=== PATIENT | male | born 1950 | race Hispanic/Latino ===

== ENCOUNTER 2019-02-21 09:17 | Emergency (ER) | payer OTHER, SELFPAY ==
[2019-02-21 09:30] VITALS: BP 130/87; PULSE 118; RESP 33; TEMP 36.9; O2SAT 96
--- NOTE | 2019-02-21 09:59 | DI.RAD.S_ITS ---
PROCEDURE: XR CHEST 1V INDICATIONS: SOB TECHNIQUE: One view of the chest was acquired. COMPARISON: None. FINDINGS: Surgical changes and devices: None. Lungs and pleura: Small patchy opacities in the right lung base which may represent atelectasis, aspiration or pneumonia. Trace right-sided pleural effusion. No pleural effusions or pneumothorax. Mediastinum: Mediastinal contours appear normal. Heart size is normal. Bones and chest wall: No suspicious bony lesions. Overlying soft tissues appear unremarkable. IMPRESSION: 1. Patchy right basilar opacities compatible with atelectasis, aspiration or pneumonia. 2. Trace right-sided pleural effusion. Dictated by: Marguerite Hart MD, PhD on 02/21/2019 at 9:23 Approved by: Marguerite Hart MD, PhD on 02/21/2019 at 9:24
[2019-02-21] MEDS: ONDANSETRON 4 MG/2 ML INJ IV (10:03)
--- NOTE | 2019-02-21 10:05 | PC.NURSE ---
Pt arrived POV with reports of RUQ pain x 4 days with increased nausea. denies vomiting and diarrhea. Per notes appears to have had thoracentsis done recently on Wednesday and 2L was removed. Pt tachy 115 NSR. EKG obtained. afebrile. IV placed and labs drawn including BC x 1 and lactate. lab in for 2nd set. CXR obtained. pt appears uncomfortable. Nausea medication given. Dr Squires at bedside
--- NOTE | 2019-02-21 10:12 | ED_ITS ---
HPI - Abdominal Pain General Chief Complaint: Abdominal Pain Stated Complaint: left lower quad pain x5 days Time Seen by Provider: 02/21/19 09:37 Source: patient Mode of arrival: Wheelchair Limitations: no limitations History of Present Illness HPI narrative: Patient is a 69-year-old male. Here for evaluation of right upper quadrant abdominal pain. Patient states the symptoms have been going on for the past couple days. Approximately 2 weeks ago he was seen at an outside emergency department for pleuritic substernal chest pain that was radiating to his right upper quadrant. I was able to review these notes. During that visit it looked like he had a very large left-sided pleural effusion. He did have a thoracentesis with removal of 800 cc. He states that improved his breathing issues. He states that the symptoms today are different from the symptoms that took him to the emergency department at that time. 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 Has not taken anything for symptoms prior to arrival. States that he potentially had some blood in his urine the other day but no dysuria. No changes in bowel habits. Related Data Home Medications Medication Instructions Recorded Confirmed omeprazole 40 mg PO BEDTIME 02/21/19 02/21/19 prednisone See Rx Instructions .ROUTE .COMPLEX 02/21/19 02/21/19 sulfamethoxazole-trimethoprim 1 tab PO BEDTIME 02/21/19 02/21/19 Allergies Allergy/AdvReac Type Severity Reaction Status Date / Time No Known Drug Allergies Allergy Verified 02/21/19 09:46 Review of Systems Constitutional Constitutional: Denies fever(s) Cardiovascular Cardiovascular: Denies chest pain and Denies dyspnea Respiratory Respiratory: Denies dyspnea Gastrointestinal Gastrointestinal: Reports abdominal pain, Reports nausea and Denies vomiting Genitourinary Genitourinary: Reports hematuria, Denies genital lesions, Denies dysuria and Denies flank pain Musculoskeletal Musculoskeletal: Denies myalgias and Denies arthralgias Integumentary/Breasts Skin/Breast: Denies lesions and Denies rash Neurologic Neurologic: Denies behavioral changes Psychiatric Psychiatric: Denies behavioral changes Hematologic/Lymphatic Hematologic/Lymphatic: Denies easy bleeding and Denies easy bruising Patient History Medical History Pleural effusion in other conditions classified elsewhere (Acute) Polyarteritis nodosa (Acute) Social History Smoking Status: Former smoker Social History Smoking Status: Former smoker alcohol intake frequency: 0-2 drinks per day Substance Use Type: does not use Exam Initial Vital Signs Initial Vital Signs: Vital Signs Temperature 98.4 F 02/21/19 09:30 Pulse Rate 118 H 02/21/19 09:30 Respiratory Rate 33 H 02/21/19 09:30 Blood Pressure 130/87 02/21/19 09:30 Pulse Oximetry 96 02/21/19 09:30 Const General: comfortable and well developed Orientation: alert, awake and oriented x3 Resp Effort & Inspection: normal respiratory effort Auscultation: clear to auscultation bilaterally Cardio Rate: tachycardic Rhythm: regular rhythm GI Palpation: soft Back/Spine/Pelvis Back: No CVA tenderness Skin Lesions: no lesions Rashes: no rashes Neuro General: alert, awake and oriented x3 Cognition: normal cognition Speech: speech normal Extrem General: capillary refill normal Psych Appearance: grossly normal and well kempt Course Orders Ordered: ED Orders 02/21/19 09:46 EKG-12 Lead Stat 02/21/19 09:58 Complete Blood Count AUTO DIFF Stat Comprehensive Metabolic Panel Stat Lactate (Lactic Acid) Stat Lipase Stat Partial Thromboplastin Time Stat Prothrombin Time INR Stat 02/21/19 09:59 XR chest 1V Stat 02/21/19 10:11 Blood Culture Stat 02/21/19 10:19 CT abdomen pelvis w con Stat 02/21/19 11:32 US abdomen limited Stat 02/21/19 13:13 Urine Microscopic Stat Discontinued Medications Hydromorphone HCl (Dilaudid) 0.5 mg IV NOW ONE Stop: 02/21/19 14:08 Last Admin: 02/21/19 14:18 Dose: 0.5 mg Documented by: RED Sodium Chloride (Normal Saline 0.9%) 1,000 mls @ 150 mls/hr IV CONT MERCEDES Last Infusion: 02/21/19 14:12 Dose: 0 mls/hr Documented by: Admin: 02/21/19 10:15 Dose: 150 mls/hr Documented by: RED Piperacillin/Tazobactam/Dextrose (Zosyn) 3.375 gm in 50 mls @ 100 mls/hr IV NOW ONE Stop: 02/21/19 14:06 Last Infusion: 02/21/19 14:12 Dose: 0 mls/hr Documented by: Admin: 02/21/19 13:52 Dose: 100 mls/hr Documented by: RED Ondansetron HCl (Zofran) 4 mg IV NOW ONE Stop: 02/21/19 09:49 Last Admin: 02/21/19 10:03 Dose: 4 mg Documented by: RED Vital Signs Vital signs: Vital Signs - 8 hr 02/21/19 12:14 02/21/19 13:30 02/21/19 15:00 Pulse Rate 100 H 93 H 93 H Respiratory Rate 20 31 H 27 H Blood Pressure [Right Arm] 115/69 111/66 106/65 Pulse Oximetry 99 96 MDM - Abdominal Pain Lab Data Attestation: I reviewed the patient's lab results. Result diagrams: 02/21/19 09:58 02/21/19 09:58 Labs: Lab Results 02/21/19 02/21/19 02/21/19 Range/Units 08:50 09:58 09:58 WBC 12.2 H (4.5-11.0) X10^3/uL RBC 5.24 (4.5-5.9) X10^6/uL Hgb 15.0 (13.5-17.5) g/dL Hct 44.3 (41-53) % MCV 84.6 (80-100) fL MCH 28.6 (26-34) PG MCHC 33.8 (30-36) % RDW 16.7 H (11.6-14.8) % Plt Count 89 L (150-400) X10^3/uL Neut % (Auto) Not Reportable Lymph % (Auto) Not Reportable [place] % (Auto) Not Reportable Eos % (Auto) Not Reportable Baso % (Auto) Not Reportable Lymph # (Auto) Not Reportable [place] # (Auto) Not Reportable Baso # (Auto) Not Reportable Total Counted 100 Seg Neutrophils % 37.0 L (38-70) % Band Neutrophils % 2.0 L (3-7) % Lymphocytes % (Manual) 11.0 L (25-45) % Monocytes % (Manual) 50.0 H (2-11) % Neutrophils # (Manual) 4758 (4322-7714) /uL RBC Morphology See below Anisocytosis 1+ H PT 20.6 H (10.1-12.7) SECONDS INR 1.8 H (0.9-1.3) APTT 46 H (26.4-36.2) SECONDS Sodium (137-145) mmol/L Potassium (3.4-5.1) mmol/L Chloride (98-107) mmol/L Carbon Dioxide (22-32) mmol/L BUN (9-20) mg/dL Creatinine (0.66-1.25) mg/dL Estimated GFR (>60) mL/min BUN/Creatinine Ratio (6-22) Glucose (80-110) mg/dL Lactate (0.7-2.1) mmol/L Calcium (8.4-10.2) mg/dL Total Bilirubin (0.2-1.3) mg/dL AST (17-59) IU/L ALT (21-72) IU/L Alkaline Phosphatase (38-126) U/L Total Protein (6.3-8.2) g/dL Albumin (3.5-5.0) g/dL Globulin (1.7-4.1) g/dL Albumin/Globulin Ratio (1.0-2.8) Lipase (23-300) U/L Procalcitonin 1.19 H (<0.5) ng/mL Urine RBC (0-5/HPF) Urine WBC (0-5/HPF) Ur Squamous Epith Cells (0-5/HPF) Urine Bacteria (None) Ur Culture Indicated? 02/21/19 02/21/19 02/21/19 Range/Units 09:58 09:58 12:18 WBC (4.5-11.0) X10^3/uL RBC (4.5-5.9) X10^6/uL Hgb (13.5-17.5) g/dL Hct (41-53) % MCV (80-100) fL MCH (26-34) PG MCHC (30-36) % RDW (11.6-14.8) % Plt Count (150-400) X10^3/uL Neut % (Auto) Lymph % (Auto) [place] % (Auto) Eos % (Auto) Baso % (Auto) Lymph # (Auto) [place] # (Auto) Baso # (Auto) Total Counted Seg Neutrophils % (38-70) % Band Neutrophils % (3-7) % Lymphocytes % (Manual) (25-45) % Monocytes % (Manual) (2-11) % Neutrophils # (Manual) (9348-6845) /uL RBC Morphology Anisocytosis PT (10.1-12.7) SECONDS INR (0.9-1.3) APTT (26.4-36.2) SECONDS Sodium 134 L (137-145) mmol/L Potassium 4.6 (3.4-5.1) mmol/L Chloride 96 L (98-107) mmol/L Carbon Dioxide 23 (22-32) mmol/L BUN 21 H (9-20) mg/dL Creatinine 1.50 H (0.66-1.25) mg/dL Estimated GFR 46.5 L (>60) mL/min BUN/Creatinine Ratio 14.0 (6-22) Glucose 127 H (80-110) mg/dL Lactate 2.4 H 0.9 (0.7-2.1) mmol/L Calcium 9.3 (8.4-10.2) mg/dL Total Bilirubin 2.0 H (0.2-1.3) mg/dL AST 39 (17-59) IU/L ALT 20 L (21-72) IU/L Alkaline Phosphatase 91 (38-126) U/L Total Protein 8.3 H (6.3-8.2) g/dL Albumin 4.2 (3.5-5.0) g/dL Globulin 4.1 (1.7-4.1) g/dL Albumin/Globulin Ratio 1.0 (1.0-2.8) Lipase 151 (23-300) U/L Procalcitonin (<0.5) ng/mL Urine RBC (0-5/HPF) Urine WBC (0-5/HPF) Ur Squamous Epith Cells (0-5/HPF) Urine Bacteria (None) Ur Culture Indicated? 02/21/19 Range/Units 13:13 WBC (4.5-11.0) X10^3/uL RBC (4.5-5.9) X10^6/uL Hgb (13.5-17.5) g/dL Hct (41-53) % MCV (80-100) fL MCH (26-34) PG MCHC (30-36) % RDW (11.6-14.8) % Plt Count (150-400) X10^3/uL Neut % (Auto) Lymph % (Auto) [place] % (Auto) Eos % (Auto) Baso % (Auto) Lymph # (Auto) [place] # (Auto) Baso # (Auto) Total Counted Seg Neutrophils % (38-70) % Band Neutrophils % (3-7) % Lymphocytes % (Manual) (25-45) % Monocytes % (Manual) (2-11) % Neutrophils # (Manual) (9396-1164) /uL RBC Morphology Anisocytosis PT (10.1-12.7) SECONDS INR (0.9-1.3) APTT (26.4-36.2) SECONDS Sodium (137-145) mmol/L Potassium (3.4-5.1) mmol/L Chloride (98-107) mmol/L Carbon Dioxide (22-32) mmol/L BUN (9-20) mg/dL Creatinine (0.66-1.25) mg/dL Estimated GFR (>60) mL/min BUN/Creatinine Ratio (6-22) Glucose (80-110) mg/dL Lactate (0.7-2.1) mmol/L Calcium (8.4-10.2) mg/dL Total Bilirubin (0.2-1.3) mg/dL AST (17-59) IU/L ALT (21-72) IU/L Alkaline Phosphatase (38-126) U/L Total Protein (6.3-8.2) g/dL Albumin (3.5-5.0) g/dL Globulin (1.7-4.1) g/dL Albumin/Globulin Ratio (1.0-2.8) Lipase (23-300) U/L Procalcitonin (<0.5) ng/mL Urine RBC 0-1/hpf (0-5/HPF) Urine WBC 0-1/hpf (0-5/HPF) Ur Squamous Epith Cells 0-1 /hpf (0-5/HPF) Urine Bacteria None seen (None) Ur Culture Indicated? Cult not indicated Point of care testing: Urine Dip Bedside Urine Glucose Negative Bedside Urine Bilirubin - Negative Bedside Urine Ketone - Negative Urine Specific [place] 1.005 Bedside Urine Occult Blood - Negative Bedside Urine pH 6.0 Bedside Urine Protein + 30 Bedside Urine Urobilinogen +/- 1mg Bedside Urine Nitrite - Negative Bedside Urine Leukocytes +/- 15 Esterase Imaging Data Chest x-ray: Radiologist's impression: [address] [address] XRay Report Signed Patient: Nicholas Cedillo CMR#: [id number] : [id number]:[id number] Age/Sex: 69 / MDate of Service: 02/21/19 Loc: ED Accession Number: [id number] Procedure: XR chest 1V Ordering Provider: Bryan Squires D.O. PROCEDURE: XR CHEST 1V INDICATIONS: SOB TECHNIQUE: One view of the chest was acquired. COMPARISON: None. FINDINGS: Surgical changes and devices: None. Lungs and pleura: Small patchy opacities in the right lung base which may represent atelectasis, aspiration or pneumonia. Trace right-sided pleural effusion. No pleural effusions or pneumothorax. Mediastinum: Mediastinal contours appear normal. Heart size is normal. Bones and chest wall: No suspicious bony lesions. Overlying soft tissues appear unremarkable. IMPRESSION: 1. Patchy right basilar opacities compatible with atelectasis, aspiration or pneumonia. 2. Trace right-sided pleural effusion. Dictated by: Marguerite Hart MD, PhD on 02/21/2019 at 9:23 Approved by: Marguerite Hart MD, PhD on 02/21/2019 at 9:24 CT scan - abdomen: Radiologist's impression: [address] [address] [address] Scan Report Signed Patient: Nicholas Cedillo CMR#: [id number] : cct:[id number] Age/Sex: 69 / MDate of Service: 02/21/19 Loc: ED Accession Number: [id number] Procedure: CT abdomen pelvis w con Ordering Provider: Bryan Squires D.O. PROCEDURE: CT ABDOMEN PELVIS W CON INDICATIONS: Generalized abdominal pain TECHNIQUE: After the administration of intravenous contrast, 5 mm thick sections acquired from the diaphragm to the symphysis. 5 mm coronal and sagittal reformats were acquired. For radiation dose reduction, the following was used: automated exposure control, adjustment of mA and/or kV according to patient size. COMPARISON: [facility], CT, CHEST/ABD/PEL WITH CONTRAST, 01/09/2017, 15:32. FINDINGS: Image quality: Excellent. ABDOMEN: Lung bases: Lung bases are abnormal with a mild pneumonia pattern at the posterior right lower lobe and a minimal area of alveolar infiltration in the posterior left lower lobe. Heart size is normal. Solid organs: Liver is normal in size and demonstrates mildly heterogeneous enhancement with a pattern of generalized mild fatty infiltration and relative sparing of fatty infiltration adjacent to the gallbladder fossa. This may indicate hyperemia in this clinical circumstance.. Gallbladder appears wall thickened and inflamed, measuring up to 9 mm in wall thickness near the fundus and there are several faintly visualized calcifications layering dependently within the gallbladder lumen. Biliary system is non dilated. Pancreas enhances normally. Spleen is again seen to be enlarged in size and normal in enhancement. Splenomegaly has mildly worsened, now measuring up to 19 cm craniocaudad. No adrenal nodules. Kidneys demonstrate normal size and enhancement, without hydronephrosis but there is mild distortion of the medial border of the left kidney superiorly, and a ovoid fluid collection with perceptible rim at its posterior border measuring up to 4.4 x 6.9 cm. The internal contents in that area is water in de nsity. This patient has a prior history of CT scanning from 2017 showing suspected masses and hemorrhage at the kidneys.. Peritoneum and bowel: Bowel loops demonstrate normal wall thickness and caliber. No free fluid or air. Nodes and vessels: No retroperitoneal or mesenteric adenopathy by size criteria. Aorta and inferior vena cava are normal in size. Miscellaneous: No ventral hernias. PELVIS: Genitourinary: Bladder wall thickness is normal. Miscellaneous: No inguinal hernias or adenopathy. Bones: No suspicious bony lesions. No vertebral body compression fractures. IMPRESSION: 1. Acute cholecystitis as the likely cause for the abnormal gallbladder wall thickening and prominent alona-cholecystic edema in the mesenteric fat. There is a small amount of adjacent free fluid and also small faintly visualized calcifications within the posterior gallbladder lumen. A definite calculus within the common duct is not seen. 2. Splenomegaly which has mildly worsened, findings discussed with the emergency room physician caring for the patient. The spleen now measures up to 19 cm craniocaudad. 3. Prior CT scanning has shown what appeared to be masses and hemorrhage involving the kidneys and a set of surgical clips are seen at the medial border of the upper left kidney adjacent to an area of a ovoid fluid collection containing water density material not previously present. This may represent a contained focus of urine extravasation/postoperative hematoma or seroma. The surgical intervention appears to have been likely long ago. 4. Fatty infiltration throughout the liver, hyperemia is noted along the gallbladder fossa as indicated by increased radiodensity within the liver parenchyma in that area. Dictated by: Leo Elizalde M.D. on 02/21/2019 at 11:20 Approved by: Leo Elizalde M.D. on 02/21/2019 at 11:31 US - abdomen: Radiologist's impression: Nicholas Cedillo 69 M 1950 [place] [address] Ultrasound Report Signed Patient: Nicholas Cedillo CMR#: [id number] : [id number]:[id number] Age/Sex: 69 / MDate of Service: 02/21/19 Loc: ED Accession Number: [id number] Procedure: US abdomen limited Ordering Provider: Bryan Squires D.O. PROCEDURE: US ABDOMEN LIMITED INDICATIONS: RUQ ULTRASOUND EVAL FOR GB PATHOLOGY TECHNIQUE: Real-time focused scanning was performed of the abdomen, with image documentation. COMPARISON: [facility], CT, CT ABDOMEN PELVIS W CON, 02/21/2019, 10:51. FINDINGS: Mild perihepatic free fluid, sludge is seen within the gallbladder lumen. Gallbladder wall is abnormally thickened at 5.1 mm. There is a small amount of free pericholecystic fluid around the gallbladder margin and tenderness during sonographic palpation. IMPRESSION: Free fluid in a small quantity is present adjacent to the liver and gallbladder. Gallbladder wall thickening, acute cholecystitis is presumed. Focal tenderness is prominent in the area of the gallbladder fossa. Dictated by: Leo Elizalde M.D. on 02/21/2019 at 12:59 Approved by: Leo Elizalde M.D. on 02/21/2019 at 13:01 ECG Data Attestation: I personally reviewed and interpreted this ECG as follows: Prior ECG tracings: not available for review Interpretation: Sinus tachycardia Ventricular rate of 117 Normal axis Normal QRS Normal QTC No ST T wave changes MDM Narrative Medical decision making narrative: Patient's chest x-ray today shows no signs of pleural effusion. He does state that his abdominal pain is different today than when he was seen for during his last visit. His physical exam was not consistent with pyelonephritis or urinary tract infection. There was no kidney stones seen on his CT scan. There was concern however for potential cholecysti tis. Right upper quadrant ultrasound was obtained which confirmed this diagnosis. Patient's LFTs relatively unremarkable. Lipase unremarkable. Patient's daughter was at bedside who asked that they be transferred to [facility] system due to proximity to other family members. She was also c oncerned about possibly our hospital here not being able to take care of his chronic immunologic issues. Per her request I did contact [facility] who did have bed availability. Discussed the case with General surgery who accepts the patient in transport. The transport is per the patient family request. He is stable for transfer. Discharge Plan Departure Patient Disposition: [facility] Clinical Impression: Acute cholecystitis, VARGHESE (polyarteritis nodosa) Discharge Date/Time: 02/21/19 15:53 Prescriptions: No Action prednisone 10 mg tablet See Rx Instructions .ROUTE .COMPLEX RF: 0 sulfamethoxazole-trimethoprim 800-160 mg tablet 1 tab PO BEDTIME RF: 0 omeprazole 40 MG capsule,delayed release(DR/EC) 40 mg PO BEDTIME RF: 0
--- NOTE | 2019-02-21 10:12 | PC.NURSE ---
pt denies SOB or CP. 98% RA. Abd SNT. awaiting orders for fluids and abd CT
[2019-02-21 10:13] LABS: Hematocrit 44.3 % (41-53); Mean Corpuscular HGB Conc 33.8 % (30-36); Mean Corpuscular Hemoglobin 28.6 PG (26-34); Mean Corpuscular Volume 84.6 fL (80-100); Red Blood Cell Count 5.24 X10^6/uL (4.5-5.9); Red Cell Distribution Width 16.7 % (11.6-14.8); White Blood Cell Count 12.2 X10^3/uL (4.5-11.0)
[2019-02-21 10:14] LABS: Add Manual Diff / Slide Review YES
[2019-02-21] MEDS: SODIUM CHLORIDE 0.9% 1,000 ML 150 ML IV (10:15)
[2019-02-21 10:17] VITALS: BP 121/68; PULSE 113; RESP 23; O2SAT 97
--- NOTE | 2019-02-21 10:19 | DI.CT.S_ITS ---
PROCEDURE: CT ABDOMEN PELVIS W CON INDICATIONS: Generalized abdominal pain TECHNIQUE: After the administration of intravenous contrast, 5 mm thick sections acquired from the diaphragm to the symphysis. 5 mm coronal and sagittal reformats were acquired. For radiation dose reduction, the following was used: automated exposure control, adjustment of mA and/or kV according to patient size. COMPARISON: [facility], CT, CHEST/ABD/PEL WITH CONTRAST, 01/09/2017, 15:32. FINDINGS: Image quality: Excellent. ABDOMEN: Lung bases: Lung bases are abnormal with a mild pneumonia pattern at the posterior right lower lobe and a minimal area of alveolar infiltration in the posterior left lower lobe. Heart size is normal. Solid organs: Liver is normal in size and demonstrates mildly heterogeneous enhancement with a pattern of generalized mild fatty infiltration and relative sparing of fatty infiltration adjacent to the gallbladder fossa. This may indicate hyperemia in this clinical circumstance.. Gallbladder appears wall thickened and inflamed, measuring up to 9 mm in wall thickness near the fundus and there are several faintly visualized calcifications layering dependently within the gallbladder lumen. Biliary system is non dilated. Pancreas enhances normally. Spleen is again seen to be enlarged in size and normal in enhancement. Splenomegaly has mildly worsened, now measuring up to 19 cm craniocaudad. No adrenal nodules. Kidneys demonstrate normal size and enhancement, without hydronephrosis but there is mild distortion of the medial border of the left kidney superiorly, and a ovoid fluid collection with perceptible rim at its posterior border measuring up to 4.4 x 6.9 cm. The internal contents in that area is water in density. This patient has a prior history of CT scanning from 2017 showing suspected masses and hemorrhage at the kidneys.. Peritoneum and bowel: Bowel loops demonstrate normal wall thickness and caliber. No free fluid or air. Nodes and vessels: No retroperitoneal or mesenteric adenopathy by size criteria. Aorta and inferior vena cava are normal in size. Miscellaneous: No ventral hernias. PELVIS: Genitourinary: Bladder wall thickness is normal. Miscellaneous: No inguinal hernias or adenopathy. Bones: No suspicious bony lesions. No vertebral body compression fractures. IMPRESSION: 1. Acute cholecystitis as the likely cause for the abnormal gallbladder wall thickening and prominent alona-cholecystic edema in the mesenteric fat. There is a small amount of adjacent free fluid and also small faintly visualized calcifications within the posterior gallbladder lumen. A definite calculus within the common duct is not seen. 2. Splenomegaly which has mildly worsened, findings discussed with the emergency room physician caring for the patient. The spleen now measures up to 19 cm craniocaudad. 3. Prior CT scanning has shown what appeared to be masses and hemorrhage involving the kidneys and a set of surgical clips are seen at the medial border of the upper left kidney adjacent to an area of a ovoid fluid collection containing water density material not previously present. This may represent a contained focus of urine extravasation/postoperative hematoma or seroma. The surgical intervention appears to have been likely long ago. 4. Fatty infiltration throughout the liver, hyperemia is noted along the gallbladder fossa as indicated by increased radiodensity within the liver parenchyma in that area. Dictated by: Leo Elizalde M.D. on 02/21/2019 at 11:20 Approved by: Leo Elizalde M.D. on 02/21/2019 at 11:31
[2019-02-21 10:20] LABS: INR 1.8 (0.9-1.3); Prothrombin Time 20.6 SECONDS (10.1-12.7)
[2019-02-21 10:23] LABS: PTT Partial Thromboplastin Tim 46 SECONDS (26.4-36.2)
[2019-02-21 10:27] LABS: Alanine Aminotransferase 20 IU/L (21-72); Albumin 4.2 g/dL (3.5-5.0); Alkaline Phosphatase 91 U/L (38-126); Aspartate Aminotransferase 39 IU/L (17-59); Blood Urea Nitrogen 21 mg/dL (9-20); Calcium 9.3 mg/dL (8.4-10.2); Carbon Dioxide 23 mmol/L (22-32); Chloride 96 mmol/L (98-107); Estimated Glomerular Filt Rate 46.5 mL/min (>60); Globulin 4.1 g/dL (1.7-4.1); Glucose 127 mg/dL (80-110); HEMOLYSIS < 15 (0-50); Lipase 151 U/L (23-300); Potassium 4.6 mmol/L (3.4-5.1); Sodium 134 mmol/L (137-145); Total Protein 8.3 g/dL (6.3-8.2)
[2019-02-21 10:28] LABS: Lactate (Lactic Acid) 2.4 mmol/L (0.7-2.1)
[2019-02-21 10:36] LABS: Neutrophils Absolute Manual 4758 /uL (3000-5900); Total Cells Counted 100
[2019-02-21 10:37] LABS: Anisocytosis 1+
[2019-02-21 10:46] LABS: Platelet Count 89 X10^3/uL (150-400)
[2019-02-21 10:54] LABS: Procalcitonin 1.19 ng/mL (<0.5)
--- NOTE | 2019-02-21 11:32 | DI.US.S_ITS ---
PROCEDURE: US ABDOMEN LIMITED INDICATIONS: RUQ ULTRASOUND EVAL FOR GB PATHOLOGY TECHNIQUE: Real-time focused scanning was performed of the abdomen, with image documentation. COMPARISON: [facility], CT, CT ABDOMEN PELVIS W CON, 02/21/2019, 10:51. FINDINGS: Mild perihepatic free fluid, sludge is seen within the gallbladder lumen. Gallbladder wall is abnormally thickened at 5.1 mm. There is a small amount of free pericholecystic fluid around the gallbladder margin and tenderness during sonographic palpation. IMPRESSION: Free fluid in a small quantity is present adjacent to the liver and gallbladder. Gallbladder wall thickening, acute cholecystitis is presumed. Focal tenderness is prominent in the area of the gallbladder fossa. Dictated by: Leo Elizalde M.D. on 02/21/2019 at 12:59 Approved by: Leo Elizalde M.D. on 02/21/2019 at 13:01
[2019-02-21 12:04] LABS: Reflexed Lactate in 2 Hours Y
--- NOTE | 2019-02-21 12:10 | PC.NURSE ---
US obtained. pt resting appears comfortable. aware of need of urine. urinal given. IVF continues to infuse. NAD.
[2019-02-21 12:14] VITALS: BP 115/69; PULSE 100; RESP 20; O2SAT 99
[2019-02-21 12:49] LABS: Lactate 2HR (Lactic Acid Rflx) 0.9 mmol/L (0.7-2.1)
[2019-02-21 13:14] LABS: Bacteria Urine None Seen
[2019-02-21 13:28] LABS: Culture Indicated Urine Cult Not Indicated; RBC Urine 0-1/HPF (0-5/HPF); Squamous Epithelial Cell Urine 0-1 /HPF (0-5/HPF); WBC Urine 0-1/HPF (0-5/HPF)
[2019-02-21 13:30] VITALS: BP 111/66; PULSE 93; RESP 31
--- NOTE | 2019-02-21 13:51 | PC.NURSE ---
Pt resting in bed. at bedside. ABX infusing. noted that both sets of cultures drawn prior to administration. Plan to transfer to [facility]/surgical consult for gallbladder.
[2019-02-21] MEDS: PIPERACILLIN-TAZO 3.375 GM/50 ML FROZ.PIGGY IV (13:52)
[2019-02-21] MEDS: HYDROMORPHONE 0.5 MG INJ IV (14:18)
[2019-02-21 15:00] VITALS: BP 106/65; PULSE 93; RESP 27; O2SAT 96
--- NOTE | 2019-02-21 15:21 | PC.NURSE ---
Pt OOb to BR with steady gait. tolerated well. report attempted to [place] RN. Not available and awaiting a call back
--- NOTE | 2019-02-21 15:53 | PC.NURSE ---
[facility] in ED to transfer pt to [place], Report given to [facility] EMT.
== END 2019-02-21 15:53 | disposition short-term general hospital (02) ==
PROVIDERS: Emergency Provider Emergency Medicine
DX: K81.0 Acute cholecystitis (principal); M30.0 Polyarteritis nodosa
CPT/HCPCS: 36415; 71045; 74177; 76705; 80053; 81003; 81015; 83605; 83690; 84145; 85025; 85610; 85730; 87040; 93005; 96361; 96365; 96375; 99283; 99285; J1170; J2405; J2543; Q9967

== ENCOUNTER 2019-08-04 17:01 | Emergency (ER) | payer OTHER, SELFPAY ==
[2019-08-04 17:10] VITALS: BP 136/86; PULSE 108; RESP 18; TEMP 36.3; O2SAT 100; BMI 229.7
[2019-08-04 18:55] LABS: Alanine Aminotransferase 15 IU/L (<50); Albumin 3.6 g/dL (3.5-5.0); Alkaline Phosphatase 41 U/L (38-126); Aspartate Aminotransferase 18 IU/L (17-59); BUN Creatinine Ratio 23.4 (6-22); Bilirubin Total 1.1 mg/dL (0.2-1.3); Blood Urea Nitrogen 18 mg/dL (9-20); Calcium 9.5 mg/dL (8.4-10.2); Carbon Dioxide 27 mmol/L (22-32); Chloride 102 mmol/L (98-107); Estimated Glomerular Filt Rate > 60.0 mL/min (>60); Globulin 3.5 g/dL (1.7-4.1); Glucose 146 mg/dL (80-110); HEMOLYSIS < 15 (0-50); Sodium 136 mmol/L (137-145); Total Protein 7.1 g/dL (6.3-8.2)
[2019-08-04 19:05] LABS: Basophils Absolute Auto 0 /uL (0-100); Basophils Percent Auto 0.1 % (0-2); Eosinophils Absolute Auto 0 /uL (0-450); Eosinophils Percent Auto 0.1 % (2-4); Hematocrit 36.7 % (41-53); Hemoglobin 12.4 g/dL (13.5-17.5); Lymphocytes Absolute Auto 300 /uL (1100-4500); Lymphocytes Percent Auto 10.7 % (25-40); Mean Corpuscular HGB Conc 33.7 % (30-36); Mean Corpuscular Hemoglobin 29.1 PG (26-34); Mean Corpuscular Volume 86.3 fL (80-100); Monocytes Absolute Auto 500 /uL (0-900); Monocytes Percent Auto 15.7 % (3-14); Neutrophils Absolute Auto 2100 /uL (1500-7000); Neutrophils Percent Auto 73.4 % (50-75); Red Blood Cell Count 4.25 X10^6/uL (4.5-5.9); Red Cell Distribution Width 18.7 % (11.6-14.8); White Blood Cell Count 2.9 X10^3/uL (4.5-11.0)
[2019-08-04 19:19] LABS: Add Manual Diff / Slide Review SLIDE REVIEW; Platelet Count 95 X10^3/uL (150-400)
[2019-08-04 19:20] LABS: Platelet Estimate Decreased on smear; Platelet Morphology Comment NOTE:; RBC Morphology Normal Morphology
--- NOTE | 2019-08-04 19:30 | DI.CT.S_ITS ---
PROCEDURE: CT PELVIS W CON INDICATIONS: abscess TECHNIQUE: After the administration of intravenous contrast, 5 mm thick sections acquired from the iliac crests to the symphysis. 5 mm coronal and sagittal reformats were acquired. For radiation dose reduction, the following was used: automated exposure control, adjustment of mA and/or kV according to patient size. COMPARISON: None. FINDINGS: Image quality: Excellent. Peritoneum and bowel: Bowel loops demonstrate normal wall thickness and caliber. No free fluid or air. Genitourinary: Bladder wall thickness is normal. Nodes and vessels: No iliac, pelvic, or inguinal adenopathy by size criteria. Iliac vessels demonstrate normal size and enhancement. Bones: No suspicious bony lesions. Miscellaneous: There is severe left gluteal subcutaneous edema, inflammation and ill-defined fluid with overlying skin thickening in keeping with severe cellulitis. A subcutaneous focus of fluid measuring 1.1 x 3.2 cm may represent developing abscess/phlegmon although no definite loculated or rim-enhancing appearance is seen at this time. IMPRESSION: Severe left gluteal cellulitis, subcutaneous edema, fluid and inflammation. Phlegmon/developing abscess seen as detailed above and depicted on the montage image. Dictated by: Chad Caro M.D. on 08/04/2019 at 20:10 Approved by: Chad Caro M.D. on 08/04/2019 at 20:17
--- NOTE | 2019-08-04 19:42 | ED.SKABFB ---
HPI - Skin/Abscess/Foreign Bdy <DIDI Cordero-BC - Last Filed: 08/04/19 21:22> General Chief complaint: Skin/Abscess/Foreign Body Stated complaint: thinks mrsa on his buttcheek Time Seen by Provider: 08/04/19 18:08 Source: patient Mode of arrival: Family Vehicle Limitations: physical limitation History of Present Illness HPI narrative: The patient is a 69-year-old male former smoker with history of brain mass who presents with a chief complaint of ?I think I have MRSA on my butt cheek.He states that he noticed some pain and swelling on his left buttock approximately 3 days ago, and then today he felt like it started draining. He states that all of a sudden his pants for full of bloody drainage from what he thinks might be an abscess. He denies any fevers nausea vomiting or diarrhea. 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 He states he is weak in his left side due to removal of a brain tumor. He states that he is no longer on any antibiotics. Related Data Home Medications Medication Instructions Recorded Confirmed omeprazole 40 mg PO BEDTIME 02/21/19 02/21/19 prednisone See Rx Instructions .ROUTE .COMPLEX 02/21/19 02/21/19 sulfamethoxazole-trimethoprim 1 tab PO BEDTIME 02/21/19 02/21/19 Previous Rx's Medication Instructions Recorded cephalexin 500 mg PO QID 10 Days #40 cap 08/04/19 sulfamethoxazole-trimethoprim 1 tab PO BID 7 Days #14 tab 08/04/19 [Bactrim DS] tramadol 50 mg PO TID PRN #10 tab 08/04/19 Allergies Allergy/AdvReac Type Severity Reaction Status Date / Time No Known Drug Allergies Allergy Verified 08/04/19 17:30 Review of Systems <SELVIN CorderoBC - Last Filed: 08/04/19 21:22> Review of Systems Narrative: GENERAL: Denies chills, fatigue, malaise, fever, sweats. HEENT: Denies sinus pain, ear pain, sore throat, difficulty swallowing, dizziness. RESPIRATORY: Denies dyspnea, cough, wheezing, hemoptysis, sputum. CARDIOVASCULAR: Denies chest pain, palpitations, orthopnea, edema, GASTROINTESTINAL: Denies nausea, vomiting, abdominal pain, diarrhea, constipation, melena. : Denies dysuria, frequency, incontinence, hematuria, urinary retention. MUSCULOSKELETAL: denies weakness, joint pain, or bony pain SKIN: See HPI NEUROLOGIC: Denies weakness, headache, numbness, change in speech, confusion, seizures, incoordination. PSYCHIATRIC: No concerning psychosocial issues. 12 point review of systems is negative except for those stated above Patient History <PIPPA Cordero - Last Filed: 08/04/19 21:22> Medical History Pleural effusion in other conditions classified elsewhere (Acute) Polyarteritis nodosa (Acute) Social History Smoking Status: Former smoker Smoking Status: Former smoker alcohol intake frequency: 0-2 drinks per day Substance Use Type: does not use Exam <PIPPA Cordero - Last Filed: 08/04/19 21:22> Narrative Exam Narrative: GENERAL: This is a well-nourished, well-developed patient, no acute distress HEAD: Atraumatic. Normocephalic. No temporal or scalp tenderness. EYES: Pupils equal round and reactive. Extraocular motions intact. No scleral icterus. No injection or drainage. ENT: Nose without bleeding, purulent drainage or septal hematoma. Throat without erythema, tonsillar hypertrophy or exudate. Uvula midline. Airway patent. NECK: Trachea midline. No JVD or lymphadenopathy. Supple, nontender, no meningeal signs. CARDIOVASCULAR: Regular rate and rhythm RESPIRATORY: Clear to auscultation. Breath sounds equal bilaterally. No wheezes, rales, or rhonchi. No cough. No increased respiratory effort. No accessory muscle use. GASTROINTESTINAL: Abdomen soft, non-tender, nondistended. No hepato-splenomegaly, or palpable masses. No guarding. EXTREMITIES: No clubbing, cyanosis, or edema. No joint tenderness, effusion, or edema noted. BACK: Nontender without deformity or crepitance. No flank tenderness. NEURO: AOx3. SKIN: 1 x 1 cm draining abscess with 6 x 8 cm surrounding erythema. Purulence and serous drainage noted. No palpable fluctuance Initial Vital Signs Initial Vital Signs: Vital Signs Temperature 97.4 F L 08/04/19 17:10 Pulse Rate 108 H 08/04/19 17:10 Respiratory Rate 18 08/04/19 17:10 Blood Pressure 136/86 08/04/19 17:10 Pulse Oximetry 100 08/04/19 17:10 <Leo Bob DO - Last Filed: 08/05/19 01:42> Initial Vital Signs Initial Vital Signs: Vital Signs Temperature 97.4 F L 08/04/19 17:10 Pulse Rate 108 H 08/04/19 17:10 Respiratory Rate 18 08/04/19 17:10 Blood Pressure 136/86 08/04/19 17:10 Pulse Oximetry 100 08/04/19 17:10 Course <SELVIN CorderoBC - Last Filed: 08/04/19 21:22> Orders Ordered: ED Orders 08/04/19 18:20 Complete Blood Count AUTO DIFF Stat Comprehensive Metabolic Panel Stat Lactate (Lactic Acid) Stat 08/04/19 18:50 Wound Culture and Gram Stain Stat 08/04/19 19:30 CT pelvis w con Stat Discontinued Medications Cephalexin HCl (Keflex) 500 mg PO NOW ONE Stop: 08/04/19 20:32 Last Admin: 08/04/19 20:51 Dose: 500 mg Documented by: TALIA Tramadol HCl (Ultram 50mg Prepack) 1 bottle MISC SEEINSTR ONE Stop: 08/04/19 21:22 Last Admin: 08/04/19 21:29 Dose: 1 bottle Documented by: TALIA Trimethoprim/Sulfamethoxazole (Bactrim Ds) 1 tab PO NOW ONE Stop: 08/04/19 20:32 Last Admin: 08/04/19 20:51 Dose: 1 tab Documented by: TALIA Vital Signs Vital signs: Vital Signs - 8 hr 08/04/19 20:50 08/04/19 21:53 08/04/19 21:54 Pulse Rate 72 76 76 Respiratory Rate 20 14 14 Blood Pressure 146/81 H Blood Pressure [Left Arm] 136/86 146/81 H Pulse Oximetry 97 98 08/04/19 21:56 Pulse Rate 76 Respiratory Rate 14 Blood Pressure 146/81 H Blood Pressure [Left Arm] Pulse Oximetry 98 <Leo Bob DO - Last Filed: 08/05/19 01:42> Orders Ordered: ED Orders 03/27/20 18:20 Complete Blood Count AUTO DIFF Stat Comprehensive Metabolic Panel Stat Lactate (Lactic Acid) Stat 08/04/19 18:50 Wound Culture and Gram Stain Stat 08/04/19 19:30 CT pelvis w con Stat Discontinued Medications Cephalexin HCl (Keflex) 500 mg PO NOW ONE Stop: 08/04/19 20:32 Last Admin: 08/04/19 20:51 Dose: 500 mg Documented by: TALIA Tramadol HCl (Ultram 50mg Prepack) 1 bottle MISC SEEINSTR ONE Stop: 08/04/19 21:22 Last Admin: 08/04/19 21:29 Dose: 1 bottle Documented by: TALIA Trimethoprim/Sulfamethoxazole (Bactrim Ds) 1 tab PO NOW ONE Stop: 08/04/19 20:32 Last Admin: 08/04/19 20:51 Dose: 1 tab Documented by: TALIA Vital Signs Vital signs: Vital Signs - 8 hr 08/04/19 20:50 08/04/19 21:53 08/04/19 21:54 Pulse Rate 72 76 76 Respiratory Rate 20 14 14 Blood Pressure 146/81 H Blood Pressure [Left Arm] 136/86 146/81 H Pulse Oximetry 97 98 08/04/19 21:56 Pulse Rate 76 Respiratory Rate 14 Blood Pressure 146/81 H Blood Pressure [Left Arm] Pulse Oximetry 98 MDM - Skin/Abscess/Foreign Bdy <DIDI Cordero-BC - Last Filed: 08/04/19 21:22> Lab Data Result diagrams: 08/04/19 18:20 08/04/19 18:20 Labs: Lab Results 08/04/19 08/04/19 08/04/19 Range/Units 18:20 18:20 18:20 WBC 2.9 L (4.5-11.0) X10^3/uL RBC 4.25 L (4.5-5.9) X10^6/uL Hgb 12.4 L (13.5-17.5) g/dL Hct 36.7 L (41-53) % MCV 86.3 (80-100) fL MCH 29.1 (26-34) PG MCHC 33.7 (30-36) % RDW 18.7 H (11.6-14.8) % Plt Count 95 L (150-400) X10^3/uL Neut % (Auto) 73.4 (50-75) % Lymph % (Auto) 10.7 L (25-40) % Calloway % (Auto) 15.7 H (3-14) % Eos % (Auto) 0.1 L (2-4) % Baso % (Auto) 0.1 (0-2) % Neut # (Auto) 2100 (0000-4497) /uL Lymph # (Auto) 300 L (1651-9248) /uL Calloway # (Auto) 500 (0-900) /uL Eos # (Auto) 0 (0-450) /uL Baso # (Auto) 0 (0-100) /uL Platelet Estimate Decreased on smear Plt Morphology Comment Note: RBC Morphology Normal morphology Sodium 136 L (137-145) mmol/L Potassium 4.0 (3.4-5.1) mmol/L Chloride 102 (98-107) mmol/L Carbon Dioxide 27 (22-32) mmol/L BUN 18 (9-20) mg/dL Creatinine 0.77 (0.66-1.25) mg/dL Estimated GFR > 60.0 (>60) mL/min BUN/Creatinine Ratio 23.4 H (6-22) Glucose 146 H (80-110) mg/dL Lactate (0.7-2.1) mmol/L Calcium 9.5 (8.4-10.2) mg/dL Total Bilirubin 1.1 (0.2-1.3) mg/dL AST 18 (17-59) IU/L ALT 15 (<50) IU/L Alkaline Phosphatase 41 (38-126) U/L Total Protein 7.1 (6.3-8.2) g/dL Albumin 3.6 (3.5-5.0) g/dL Globulin 3.5 (1.7-4.1) g/dL Albumin/Globulin Ratio 1.0 (1.0-2.8) Procalcitonin Cancelled 08/04/19 Range/Units 18:20 WBC (4.5-11.0) X10^3/uL RBC (4.5-5.9) X10^6/uL Hgb (13.5-17.5) g/dL Hct (41-53) % MCV (80-100) fL MCH (26-34) PG MCHC (30-36) % RDW (11.6-14.8) % Plt Count (150-400) X10^3/uL Neut % (Auto) (50-75) % Lymph % (Auto) (25-40) % Calloway % (Auto) (3-14) % Eos % (Auto) (2-4) % Baso % (Auto) (0-2) % Neut # (Auto) (6721-0814) /uL Lymph # (Auto) (9908-3563) /uL Calloway # (Auto) (0-900) /uL Eos # (Auto) (0-450) /uL Baso # (Auto) (0-100) /uL Platelet Estimate Plt Morphology Comment RBC Morphology Sodium (137-145) mmol/L Potassium (3.4-5.1) mmol/L Chloride (98-107) mmol/L Carbon Dioxide (22-32) mmol/L BUN (9-20) mg/dL Creatinine (0.66-1.25) mg/dL Estimated GFR (>60) mL/min BUN/Creatinine Ratio (6-22) Glucose (80-110) mg/dL Lactate 1.0 (0.7-2.1) mmol/L Calcium (8.4-10.2) mg/dL Total Bilirubin (0.2-1.3) mg/dL AST (17-59) IU/L ALT (<50) IU/L Alkaline Phosphatase (38-126) U/L Total Protein (6.3-8.2) g/dL Albumin (3.5-5.0) g/dL Globulin (1.7-4.1) g/dL Albumin/Globulin Ratio (1.0-2.8) Procalcitonin Imaging Data pelvic CT: Radiologist's Impression: [address] [address] [address] Scan Report Signed Patient: Nicholas Cedillo CMR#: [id number] : [id number]:[id number] Age/Sex: 69 / MDate of Service: 08/04/19 Loc: ED Accession Number: [id number] Procedure: CT pelvis w con Ordering Provider: Ban Ansari [facility] PROCEDURE: CT PELVIS W CON INDICATIONS: abscess TECHNIQUE: After the administration of intravenous contrast, 5 mm thick sections acquired from the iliac crests to the symphysis. 5 mm coronal and sagittal reformats were acquired. For radiation dose reduction, the following was used: automated exposure control, adjustment of mA and/or kV according to patient size. COMPARISON: None. FINDINGS: Image quality: Excellent. Peritoneum and bowel: Bowel loops demonstrate normal wall thickness and caliber. No free fluid or air. Genitourinary: Bladder wall thickness is normal. Nodes and vessels: No iliac, pelvic, or inguinal adenopathy by size criteria. Iliac vessels demonstrate normal size and enhancement. Bones: No suspicious bony lesions. Miscellaneous: There is severe left gluteal subcutaneous edema, inflammation and ill-defined fluid with overlying skin thickening in keeping with severe cellulitis. A subcutaneous focus of fluid measuring 1.1 x 3.2 cm may represent developing abscess/phlegmon although no definite loculated or rim-enhancing appearance is seen at this time. IMPRESSION: Severe left gluteal cellulitis, subcutaneous edema, fluid and inflammation. Phlegmon/developing abscess seen as detailed above and depicted on the montage image. Dictated by: Chad Caro M.D. on 08/04/2019 at 20:10 Approved by: Chad Caro M.D. on 08/04/2019 at 20:17 [facility] Narrative Medical decision making narrative: The patient is a 61-year-old male with history brain tumor who presents with concerns of MRSA infection on his buttock. He has no signs of systemic illness, is afebrile without nausea vomiting or diarrhea. Exam indicates the abscess on his left gluteal cleft. He has no leukocytosis, normal lactate. CT scan of pelvis with contrast soaks taken at to help rule out any rectal abscess. CT shows no perirectal abscess at this point, possible developing abscess with cellulitis. Given the patient's description of fluid drainage from the area that was purulence, I wonder if he already had an abscess drained. Given that the patient is immunocompromised, I did discuss admission with the patient. However he declines admission at this point time stating that he feels safer at home that he does in the hospital. Given he is afebrile, with normal lactate I am okay with this plan. Will place patient on Bactrim and Keflex which he tolerated a p.o. in the emergency department prior to discharge.. Discussed at length follow up with primary care provider, monitoring for signs of systemic illness. Discussed very strict return precautions to the emergency department. <Leo Bob, DO - Last Filed: 08/05/19 01:42> Lab Data Labs: Lab Results 08/04/19 08/04/19 08/04/19 Range/Units 18:20 18:20 18:20 WBC 2.9 L (4.5-11.0) X10^3/uL RBC 4.25 L (4.5-5.9) X10^6/uL Hgb 12.4 L (13.5-17.5) g/dL Hct 36.7 L (41-53) % MCV 86.3 (80-100) fL MCH 29.1 (26-34) PG MCHC 33.7 (30-36) % RDW 18.7 H (11.6-14.8) % Plt Count 95 L (150-400) X10^3/uL Neut % (Auto) 73.4 (50-75) % Lymph % (Auto) 10.7 L (25-40) % Calloway % (Auto) 15.7 H (3-14) % Eos % (Auto) 0.1 L (2-4) % Baso % (Auto) 0.1 (0-2) % Neut # (Auto) 2100 (7911-8014) /uL Lymph # (Auto) 300 L (1109-2523) /uL Calloway # (Auto) 500 (0-900) /uL Eos # (Auto) 0 (0-450) /uL Baso # (Auto) 0 (0-100) /uL Platelet Estimate Decreased on smear Plt Morphology Comment Note: RBC Morphology Normal morphology Sodium 136 L (137-145) mmol/L Potassium 4.0 (3.4-5.1) mmol/L Chloride 102 (98-107) mmol/L Carbon Dioxide 27 (22-32) mmol/L BUN 18 (9-20) mg/dL Creatinine 0.77 (0.66-1.25) mg/dL Estimated GFR > 60.0 (>60) mL/min BUN/Creatinine Ratio 23.4 H (6-22) Glucose 146 H (80-110) mg/dL Lactate (0.7-2.1) mmol/L Calcium 9.5 (8.4-10.2) mg/dL Total Bilirubin 1.1 (0.2-1.3) mg/dL AST 18 (17-59) IU/L ALT 15 (<50) IU/L Alkaline Phosphatase 41 (38-126) U/L Total Protein 7.1 (6.3-8.2) g/dL Albumin 3.6 (3.5-5.0) g/dL Globulin 3.5 (1.7-4.1) g/dL Albumin/Globulin Ratio 1.0 (1.0-2.8) Procalcitonin Cancelled 08/04/19 Range/Units 18:20 WBC (4.5-11.0) X10^3/uL RBC (4.5-5.9) X10^6/uL Hgb (13.5-17.5) g/dL Hct (41-53) % MCV (80-100) fL MCH (26-34) PG MCHC (30-36) % RDW (11.6-14.8) % Plt Count (150-400) X10^3/uL Neut % (Auto) (50-75) % Lymph % (Auto) (25-40) % Calloway % (Auto) (3-14) % Eos % (Auto) (2-4) % Baso % (Auto) (0-2) % Neut # (Auto) (7304-3417) /uL Lymph # (Auto) (1407-0158) /uL Calloway # (Auto) (0-900) /uL Eos # (Auto) (0-450) /uL Baso # (Auto) (0-100) /uL Platelet Estimate Plt Morphology Comment RBC Morphology Sodium (137-145) mmol/L Potassium (3.4-5.1) mmol/L Chloride (98-107) mmol/L Carbon Dioxide (22-32) mmol/L BUN (9-20) mg/dL Creatinine (0.66-1.25) mg/dL Estimated GFR (>60) mL/min BUN/Creatinine Ratio (6-22) Glucose (80-110) mg/dL Lactate 1.0 (0.7-2.1) mmol/L Calcium (8.4-10.2) mg/dL Total Bilirubin (0.2-1.3) mg/dL AST (17-59) IU/L ALT (<50) IU/L Alkaline Phosphatase (38-126) U/L Total Protein (6.3-8.2) g/dL Albumin (3.5-5.0) g/dL Globulin (1.7-4.1) g/dL Albumin/Globulin Ratio (1.0-2.8) Procalcitonin Discharge Plan Departure Patient Disposition: Home Clinical Impression: Abscess Cellulitis Qualifiers: Site of cellulitis: buttock Qualified Code(s): L03.317 - Cellulitis of buttock Discharge Date/Time: 08/04/19 21:59 Instructions: DI for Cellulitis -- Adult, DI for Methicillin-Resistant Staph Infection (MRSA), DI for Skin Abscess Activity Restrictions/Additional Instructions: The thank you for trusting us with your care today. I have sent 3 prescriptions to [facility] in [place]. One of these medications is tramadol for pain. The other 2 were antibiotics. Please take the full course of antibiotics. Please follow-up with primary care provider in the next few days for reassessment. As discussed, please monitor for signs of systemic infection such as fevers, inability keep down fluids or any acute concerns. If you have any acute concerns please come back to the emergency department. I have given you discharge instructions regarding MRSA as your very concerned about MRSA. Please remember that your wound culture will result in 2-3 days. We will call you if we need to change your antibiotic therapy. Please come back to the emergency department for any acute concerns. Prescriptions: New sulfamethoxazole-trimethoprim [Bactrim DS] 800-160 mg tablet 1 tab PO BID 7 Days Qty: 14 RF: 0 cephalexin 500 mg capsule 500 mg PO QID 10 Days Qty: 40 RF: 0 tramadol 50 mg tablet 50 mg PO TID PRN (Reason: pain) Qty: 10 RF: 0 No Action prednisone 10 mg tablet See Rx Instructions .ROUTE .COMPLEX RF: 0 sulfamethoxazole-trimethoprim 800-160 mg tablet 1 tab PO BEDTIME RF: 0 omeprazole 40 MG capsule,delayed release(DR/EC) 40 mg PO BEDTIME RF: 0 Referrals: Virgilio Dixon MD [Physician] - <Leo Bob DO - Last Filed: 08/05/19 01:42> Cosign ED Attending Dakshaature Attestation: I was immediately available in the department for consultation. This documentation has been reviewed and I agree with assessment and plan. Supervised by Leo Bob, DO
[2019-08-04 20:50] VITALS: BP 136/86; PULSE 72; RESP 20; O2SAT 97
[2019-08-04] MEDS: TRIMETH/SULFA 160/800 (DS) TABLET 1 TAB PO (20:51)
[2019-08-04] MEDS: cephALEXin 250 MG CAPSULE 500 MG PO (20:51)
[2019-08-04] MEDS: TRAMADOL 50 MG PREPACK 1 BOTTLE MISC (21:29)
[2019-08-04 21:53] VITALS: BP 146/81; PULSE 76; RESP 14; O2SAT 98
[2019-08-04 21:54] VITALS: BP 146/81; PULSE 76; RESP 14
[2019-08-04 21:56] VITALS: BP 146/81; PULSE 76; RESP 14; O2SAT 98
== END 2019-08-04 21:59 | disposition home or self-care (01) ==
PROVIDERS: Emergency Provider Nurse Practitioner Family
DX: L02.31 Cutaneous abscess of buttock (principal); L03.317 Cellulitis of buttock
CPT/HCPCS: 36415; 72193; 80053; 83605; 85025; 87070; 87075; 87077; 87147; 87186; 87205; 99284; Q9967